=== PATIENT | female | born 1945 | race Caucasian/White ===

== ENCOUNTER 2019-06-15 10:57 | Outpatient (CLI) | payer MEDICARE, OTHER, SELFPAY ==
--- NOTE | ~2019-06-15 | XR_ITS ---
XR chest 2V DATE: 06/15/2019 11:28 INDICATION: Cough, shortness of breath, flu-like symptoms TECHNIQUE: AP and lateral views COMPARISON: 09/29/2017 two-view chest FINDINGS: Bilateral hyperinflation, consistent with COPD. No pulmonary infiltrate or consolidation, pleural effusion or pulmonary vascular congestion or pneumo thorax is detected. Cardiomegaly. Aortic calcification. No hilar or mediastinal enlargement. Diffuse osteopenia. There is levoscoliosis of the thoracic spine. There is chronic stable anterior wedge compression frac ture deformity of multiple mid thoracic vertebral bodies, unchanged since 09/29/2017. IMPRESSION: COPD No active cardiopulmonary disease Reviewed, dictated and finalized at location B. [facility]
[2019-06-15 11:13] LABS: Basophils Absolute Auto 0.06 K/mm3 (0.00-0.10); Basophils Percent Auto 0.8 % (0.0-1.0); Eosinophils Absolute Auto 0.08 K/mm3 (0.02-0.50); Hematocrit 40.3 % (35.0-42.0); Immature Granulocyte Absolute 0.05 K/mm3 (0.00-0.00); Immature Granulocyte Percent A 0.7 % (0.0-0.0); Lymphocytes Percent Auto 10.5 % (18.0-42.0); Mean Corpuscular HGB Conc 32.3 g/dL (32.0-36.0); Mean Corpuscular Hemoglobin 30.3 pg (27.0-31.0); Mean Corpuscular Volume 93.9 fL (78.0-102.0); Mean Platelet Volume 8.2 fl (9.2-11.8); Monocytes Absolute Auto 0.49 K/mm3 (0.10-0.90); Monocytes Percent Auto 6.4 % (2.0-11.0); Neutrophils Absolute Auto 6.1 K/mm3 (1.7-7.2); Neutrophils Percent Auto 80.6 % (50.0-70.0); Platelet Count Result 351 K/mm3 (150-420); Red Blood Count 4.29 M/mm3 (4.20-5.40); Red Cell Distribution Width 11.9 % (11.6-14.4); White Blood Count 7.6 K/mm3 (4.8-10.8)
[2019-06-15 11:34] LABS: Alanine Aminotransferase 16 U/L (14-59); Albumin Level 3.4 g/dL (3.4-5.0); Alkaline Phosphatase 64 U/L (46-116); Anion Gap 12.4 mmol/L (7-16); Aspartate Amino Transferase 14 U/L (15-37); Bilirubin,Total 0.3 mg/dL (0.00-1.00); Blood Urea Nitrogen 13 mg/dL (7-18); Calcium 8.8 mg/dL (8.5-10.1); Carbon Dioxide 28 mmol/L (21-32); Chloride 100 mmol/L (98-108); Estimated Glomerular Filt Rate > 60; Glucose 98 mg/dL (70-99); Osmolality Calculated 282 mOsm/kg (285-295); Potassium 4.4 mmol/L (3.5-5.1); Sodium 136 mmol/L (136-145); Total Protein 7.6 g/dL (6.4-8.2)
== END 2019-06-15 10:58 | disposition home or self-care (01) ==
PROVIDERS: PCP Internal Medicine; Visit Provider Internal Medicine
DX: R05 Cough (principal); R10.9 Unspecified abdominal pain
CPT/HCPCS: 36415; 71046; 80053; 85025

== ENCOUNTER 2022-06-29 13:08 | Emergency (ER) | payer MEDICARE, OTHER, SELFPAY ==
[2022-06-29] VITALS (15 sets, daily range): BP systolic 95–144; BP diastolic 61–79; PULSE 88–99; RESP 18–26; TEMP 36.2–37.1; O2SAT 99–100
--- NOTE | ~2022-06-29 | XR_ITS ---
EXAMINATION: XR chest 1V portable 06/29/2022 13:49 INDICATION: Cough. Covid positive. PROCEDURE: AP portable chest COMPARISON: 06/15/2019 FINDINGS: The lungs are clear. The lungs are hyperinflated which is consistent with, but not diagnost ic of chronic obstructive pulmonary disease. The cardiomediastinal silhouette is within normal limit s. There are no pleural effusions. There is no pneumothorax suspected. IMPRESSION: 1: NO ACUTE CARDIOPULMONARY DISEASE. Reviewed, dictated and finalized at location L. [facility]
--- NOTE | 2022-06-29 13:38 | ED.SOB ---
HPI - SOB/Dyspnea General Chief Complaint: Shortness of Breath/Dyspnea Stated Complaint: COVID + Time Seen by Provider: 06/29/22 13:37 Source: patient and RN notes reviewed Mode of arrival: ambulatory Limitations: no limitations History of Present Illness HPI Narrative: patient states that she tested positive with an [id number] outpatient test today. She has been having cough and some increased shortness of breath. She does remain on 4 L O2 at home. She says that she is not having any worsening shortness of breath Than normal. MD elicited complaint: shortness of breath and cough Pertinent past history: COPD Onset (ago): hour(s) (4) Severity: mild Exacerbating factors: exertion Relieving factors: rest Known history of: COPD Associated symptoms: cough and sputum production ( today whitish-yellow) Treatment prior to arrival: oxygen Related Data Home oxygen amount: 4 liters Home Medications Medication Instructions Recorded Confirmed fluoxetine 40 mg capsule 40 mg PO DAILY 06/29/22 06/29/22 trazodone 50 mg tablet 50 mg PO HS 06/29/22 06/29/22 Allergies Allergy/AdvReac Type Severity Reaction Status Date / Time No Known Allergies Allergy Verified 06/29/22 13:23 Review of Systems Review of Systems: All systems reviewed & are unremarkable except as noted in HPI and below Constitutional: Constitutional: Denies chills and Denies fever(s) Cardiovascular: Cardiovascular: Denies chest pain Gastrointestinal: Gastrointestinal: Denies nausea and Denies vomiting PMFSH Past Medical History Medical History (Updated 06/29/22 @ 14:46 by Alexsander Lawrence MD) COPD (chronic obstructive pulmonary disease) Depression Exam Const: General: no acute distress, alert and ill appearing acutely and chronically Nutritional Appearance: well nourished Orientation/consciousness: patient oriented x3 Limitations: no limitations Other: patient just make on arrival and then once in a room and relaxed she is breathing normally and speaking in full sentences. HENMT: Head: normal to inspection Ears: external ears normal Eyes: Conjunctivae: conjunctivae normal Pupils: Equal, round and reactive pupils present EOM: EOMs intact bilaterally Neck: Neck: normal visual inspection Resp: Effort & Inspection: normal respiratory effort and tachypneic ( Initially tachypneic but then rested and normal respirations) Auscultation: wheezes ( mild scattered) Cardio: Rate: regular rate Rhythm: regular rhythm GI: GI Palp: Yes Soft to palpation and No Tenderness to palpation present (GI) Auscultation: normal bowel sounds Back/Spine/Pelvis: Cervical Spine: cervical ROM normal Thoracic/Lumbar Spine: thoraco-lumbar ROM normal Skin: General skin exam: normal color Rashes: no rashes Neuro: General: patient oriented x3, moves all extremities, no focal motor deficits and CN's II-XI intact bilaterally Speech: normal speech Gait exam (Neuro): Normal gait present Extrem: General: normal to inspection and no clubbing, cyanosis or edema Psych: Mental Status: mental status grossly normal Affect: normal affect Attitude: cooperative Course Course Emergency Course: I discussed admission with the patient and she declined at this time. She says that she feels comfortable going home on steroids and Lageviro. She also states that she does not feel any respiratory distress at this time and she is not requiring any additional oxygen than what she is at home. She is given 10 mg of dexamethasone IV and will be put on a steroid taper home. I called and spoke with her primary care physician gave him update on her current diagnosis and my findings. He agreed with her being at home and he would follow up with her in 7-10 days after she is out of quarantine. Vital Signs Vital signs: Vital Signs Temperature 37.1 C 06/29/22 13:10 Pulse Rate 88 06/29/22 13:10 Respiratory Rate 26 H 06/29/22 13:10 Blood Pressure 144/77 H 06/29/22 13:10 Pulse O
[2022-06-29 13:56] LABS: Basophils Absolute Auto 0.02 K/mm3 (0.00-0.10); Basophils Percent Auto 0.4 % (0.0-1.0); Eosinophils Absolute Auto 0.01 K/mm3 (0.02-0.50); Eosinophils Percent Auto 0.2 % (1.0-6.0); Hematocrit 35.8 % (35.0-42.0); Hemoglobin 10.9 g/dL (11.7-13.8); Immature Granulocyte Absolute 0.02 K/mm3 (0.00-0.00); Immature Granulocyte Percent A 0.4 % (0.0-0.0); Lymphocytes Absolute Auto 0.75 K/mm3 (1.10-4.50); Mean Corpuscular HGB Conc 30.4 g/dL (32.0-36.0); Mean Corpuscular Volume 98.6 fL (78.0-102.0); Mean Platelet Volume 8.8 fl (9.2-11.8); Neutrophils Absolute Auto 3.5 K/mm3 (1.7-7.2); Platelet Count Result 260 K/mm3 (150-420); Red Blood Count 3.63 M/mm3 (4.20-5.40); Red Cell Distribution Width 11.4 % (11.6-14.4)
[2022-06-29 14:22] LABS: Alanine Aminotransferase 10 U/L (14-59); Albumin Level 3.1 g/dL (3.4-5.0); Alkaline Phosphatase 57 U/L (46-116); Anion Gap 2 mmol/L (8-16); Aspartate Amino Transferase 17 U/L (15-37); Bilirubin,Total 0.4 mg/dL (0.00-1.00); Blood Urea Nitrogen 10 mg/dL (7-18); CRP 3.5 mg/dL (0.0-0.9); Calcium 8.4 mg/dL (8.5-10.1); Carbon Dioxide 40 mmol/L (21-32); Chloride 99 mmol/L (98-108); Estimated CRCL calculation 57 ml/min; Estimated Glomerular Filt Rate > 60; Ferritin 148 ng/mL (8-252); Glucose 121 mg/dL (70-99); Magnesium 1.8 mg/dL (1.8-2.4); Osmolality Calculated 292 mOsm/kg (285-295); Potassium 3.5 mmol/L (3.5-5.1); Sodium 141 mmol/L (136-145); Total Protein 8.1 g/dL (6.4-8.2)
[2022-06-29 14:31] LABS: Lactic Acid Reflex 1.5 mmol/L (0.4-2.0)
== END 2022-06-29 15:10 | disposition home or self-care (01) ==
PROVIDERS: Emergency Provider Emergency Medicine; PCP Internal Medicine
DX: U07.1 COVID-19 (principal); J44.9 Chronic obstructive pulmonary disease, unspecified; Z99.81 Dependence on supplemental oxygen
CPT/HCPCS: 36415; 71045; 80053; 82728; 83605; 83735; 85025; 86140; 96374; 99284; J1100

== ENCOUNTER 2022-09-04 14:11 | Emergency (ER) | payer MEDICARE, OTHER, SELFPAY ==
[2022-09-04] VITALS (21 sets, daily range): BP systolic 100–150; BP diastolic 57–99; PULSE 90–110; RESP 18–28; TEMP 36.3–37.2; O2SAT 87–100
--- NOTE | ~2022-09-04 | XR_ITS ---
EXAMINATION: XR chest 1V portable DATE: 09/04/2022 15:20 INDICATION: Dyspnea TECHNIQUE: frontal view of the chest was obtained. COMPARISON: Chest radiograph dated 06/29/2022 and 06/15/2019 FINDINGS: Again seen is mild hyperexpansion of lungs with increased lucency and some architectural distortion a t the upper lung zone and associated mild atelectasis and bronchovascular crowding in the lower lung zones. No pleural effusion or pneumothorax. The cardiomediastinal silhouette is within normal limits for AP technique. Mild thoracic levocurvature with a few chronic compression fractures in the mid tho racic spine. IMPRESSION: 1. Stable appearance of upper lung predominant emphysema with bronchovascular crowding and mild atele ctasis in the lower lung zones. Reviewed, dictated and finalized at location A. IMPRESSION: 1. Stable appearance of upper lung predominant emphysema with bronchovascular c rowding and mild atelectasis in the lower lung zones.
--- NOTE | 2022-09-04 14:14 | ECG_ITS ---
Measurements Intervals [place] Rate: 100 P: 83 ID: [id number] QRS: 50 QRSD: 85 T: 77 QT: 337 QTc: 435 Interpretive Statements SINUS TACHYCARDIA ATRIAL PREMATURE COMPLEXES EARLY PRECORDIAL R/S TRANSITION BORDERLINE ECG NO PREVIOUS ECG AVAILABLE FOR COMPARISON Electronically Signed On 09-06-2022 6:48:48 CDT by Perfecto Martinez D.O.
--- NOTE | 2022-09-04 14:35 | PC.NURSE ---
lungs diminished amos, scattered wheezes noted. nail beds mylene
[2022-09-04] MEDS: IPRATROPIUM BR 0.02% INH SOLN 0.5 MG/2.5 ML VIAL 1 MG INHALATION (14:40)
[2022-09-04] MEDS: ALBUTEROL SULFATE NEB 2.5 MG/3 ML INH 10 MG INHALATION (14:40)
[2022-09-04] MEDS: SODIUM CHLORIDE 0.9% IV 1,000 ML 999 ML IV CONT (14:45)
[2022-09-04 14:49] LABS: Basophils Absolute Auto 0.03 K/mm3 (0.00-0.10); Basophils Percent Auto 0.6 % (0.0-1.0); Eosinophils Absolute Auto 0.01 K/mm3 (0.02-0.50); Eosinophils Percent Auto 0.2 % (1.0-6.0); Hematocrit 35.7 % (35.0-42.0); Hemoglobin 10.8 g/dL (11.7-13.8); Immature Granulocyte Absolute 0.02 K/mm3 (0.00-0.00); Immature Granulocyte Percent A 0.4 % (0.0-0.0); Lymphocytes Absolute Auto 0.38 K/mm3 (1.10-4.50); Lymphocytes Percent Auto 7.2 % (18.0-42.0); Mean Corpuscular HGB Conc 30.3 g/dL (32.0-36.0); Mean Corpuscular Hemoglobin 30.6 pg (27.0-31.0); Mean Corpuscular Volume 101.1 fL (78.0-102.0); Mean Platelet Volume 9.2 fl (9.2-11.8); Monocytes Absolute Auto 0.37 K/mm3 (0.10-0.90); Neutrophils Absolute Auto 4.5 K/mm3 (1.7-7.2); Neutrophils Percent Auto 84.6 % (50.0-70.0); Platelet Count Result 249 K/mm3 (150-420); Red Blood Count 3.53 M/mm3 (4.20-5.40); White Blood Count 5.3 K/mm3 (4.8-10.8)
--- NOTE | 2022-09-04 15:05 | ED.GENADULT ---
HPI - General Adult General Chief complaint: Unspecified Stated complaint: SOB History of Present Illness HPI narrative: 77yo woman history of emphysema, pulmonary fibrosis, brought by EMS to ED with dyspnea for past 2-3 days. Daughter says she is starting to get confused. No fevers, chills, chest pain, congestion. She is supposed to take nebulized bronchodilators at home but does not take them. Also supposed to be on CPAP but does not use it. Initial ABG notable for pCO2 greater than 100. Started on BiPAP, pulling Vt 450 cc x 18 bpm. Related Data Home Medications Medication Instructions Recorded Confirmed fluoxetine 40 mg capsule 40 mg PO DAILY 06/29/22 09/04/22 trazodone 50 mg tablet 50 mg PO HS 06/29/22 09/04/22 Allergies Allergy/AdvReac Type Severity Reaction Status Date / Time No Known Allergies Allergy Verified 06/29/22 13:23 Review of Systems Review of Systems: All systems reviewed & are unremarkable except as noted in HPI and below Constitutional: Constitutional: Reports as per HPI Cardiovascular: Cardiovascular: Denies chest pain Respiratory: Respiratory: Reports dyspnea [facility] Past Medical History Medical History COPD (chronic obstructive pulmonary disease) Depression Exam Const: General: in distress Other: inattentive, slightly stuporous HENMT: Head: normal to inspection Eyes: General: appearance normal, both eyes and all related structures Resp: Effort & Inspection: not able to speak in complete sentences, no cough, labored, pursed lip breathing, respiratory distress and prolonged expiratory phase Other: bilateral breath sounds very diminished, equal, clear, no wheezing Cardio: Rate: tachycardic Rhythm: regular rhythm Extrem: General: no pedal edema Course Course Emergency Course: 1809 Doing better on BiPAP with anxiolysis from Lorazepam. Vt 450 on 04/13. Rate turned up to 18. 1759 Pt accepted for transfer by Dr Dillard at [facility]. 183 Still awaiting a bed. Nurses calling for updates. Pt maintaining Vt on BiPAP. Will send for repeat ABG soon. Vital Signs Vital signs: Vital Signs Temperature 36.6 C 09/04/22 14:10 Pulse Rate 100 09/04/22 14:10 Respiratory Rate 22 H 09/04/22 14:10 Blood Pressure 150/95 H 09/04/22 14:10 Pulse Oximetry 87 L 09/04/22 14:10 Oxygen Delivery Room Air 09/04/22 14:10 Temperature 36.6 C 09/04/22 14:10 Pulse Rate 110 H 09/04/22 16:39 Respiratory Rate 28 H 09/04/22 16:39 Blood Pressure 150/95 H 09/04/22 14:10 Pulse Oximetry 94 09/04/22 16:39 Oxygen Delivery Autopap 09/04/22 16:52 Oxygen Flow Rate 2 09/04/22 14:41 Transfer Transfered to: Other ([facility]) Transportation: [facility] Medical Decision Making MDM Narrative Medical decision making narrative: acute hypercapnic respiratory failure DDx COPD exacerbation, pneumonia, pneumothorax, viral lower respiratory infection. Critically poor respirations. Chronic respirations. BiPAP started. Medical Records Medical records reviewed: Yes I reviewed the external patient's medical records. Vital Signs Vital Signs: Vital Signs Temperature 36.6 C 09/04/22 14:10 Pulse Rate 100 09/04/22 14:10 Respiratory Rate 22 H 09/04/22 14:10 Blood Pressure 150/95 H 09/04/22 14:10 Pulse Oximetry 87 L 09/04/22 14:10 Oxygen Delivery Room Air 09/04/22 14:10 Temperature 36.6 C 09/04/22 14:10 Pulse Rate 110 H 09/04/22 16:39 Respiratory Rate 28 H 09/04/22 16:39 Blood Pressure 150/95 H 09/04/22 14:10 Pulse Oximetry 94 09/04/22 16:39 Oxygen Delivery Autopap 09/04/22 16:52 Oxygen Flow Rate 2 09/04/22 14:41 Lab Data Lab results reviewed: Yes I reviewed the patient's lab results. 09/04/22 14:14 09/04/22 14:14 Labs: Lab Results 09/04/22 09/04/22 Range/Units 14:14 14:15 WBC 5.3 (4.8-10.8) K/mm3 RBC 3.
[2022-09-04 15:07] LABS: Bilirubin Urine Negative (Negative); Blood Urine 2+ (Negative); Color Urine Light Yellow (Yellow); Glucose Urine UA Negative (Negative); Ketones Urine 1+ (Negative); Leukocyte Esterase Ur Negative LEU/UL (Negative); Nitrate Urine Negative (Negative); Protein Urine Negative (Negative); Specific Grav Ur 1.015 (1.010-1.020); Urobilinogen Urine 0.2 mg/dL (0.2-1.0)
[2022-09-04 15:13] LABS: Lactic Acid Reflex 0.5 mmol/L (0.4-2.0)
[2022-09-04 15:13] LABS: Add Urine Microscopic? YES; Appearance Urine Cloudy (Clear); RBC Urine 0-2 /hpf (0-2)
[2022-09-04 15:14] LABS: Amorphous Sediment Urine Heavy; Bacteria Urine 4+ /hpf
[2022-09-04 15:14] LABS: Alanine Aminotransferase 10 U/L (14-59); Alkaline Phosphatase 52 U/L (46-116); Anion Gap 1 mmol/L (8-16); Aspartate Amino Transferase 20 U/L (15-37); Bilirubin,Total 0.3 mg/dL (0.00-1.00); Blood Urea Nitrogen 7 mg/dL (7-18); Calcium 8.9 mg/dL (8.5-10.1); Carbon Dioxide 45 mmol/L (21-32); Chloride 89 mmol/L (98-108); Estimated CRCL calculation 80 ml/min; Estimated Glomerular Filt Rate > 60; Glucose 117 mg/dL (70-99); Lactate Dehydrogenase 193 U/L (81-234); Magnesium 1.9 mg/dL (1.8-2.4); NT Pro B Type Natriuretic Pept 241 pg/mL (0-450); Osmolality Calculated 279 mOsm/kg (285-295); Potassium 4.4 mmol/L (3.5-5.1); Sodium 135 mmol/L (136-145); Total Protein 7.1 g/dL (6.4-8.2); Troponin I 30.4 ng/L (0.00-60.4)
[2022-09-04 15:32] LABS: HCO3 ABG 43.4 mmol/L (23-29); Oxygen Content ABG 17.4 %vol (16.0-22.0); Oxygen Saturation ABG 99.4 % (95-97); Oxyhemoglobin 98.5 % (94-100); PO2 ABG 322.4 mmHg (75-85); pH ABG 7.23 (7.35-7.45)
[2022-09-04 15:33] LABS: Device NASAL CANNULA; Modified Allen's Test Pass; Site Drawn RIGHT RADIAL
--- NOTE | 2022-09-04 15:55 | PC.NURSE ---
Patient daughter asked for food for her mother, patient was hungry. Pt advised she would have to wait results of pending test
--- NOTE | 2022-09-04 16:05 | PC.NURSE ---
while daughter in room, pt won't open eyes or answer questions. Moans only response when daughter not in room pt eyes open & answers questions
[2022-09-04] MEDS: LORazepam INJ (*CRX) 2 MG/ML VIAL 0.5 MG IV PUSH ×2 (17:07→17:54)
--- NOTE | 2022-09-04 19:19 | PC.NURSE ---
191- Call to [employer] [facility] to check on flight availability today. [facility] 156 on standby out of [facility] with an an eta of 18 minutes once pt is assigned a room at [facility].
[2022-09-04 19:41] LABS: Base Excess ABG 10.8 mmol/L (0-2); HCO3 ABG 39.9 mmol/L (23-29); Oxygen Content ABG 15.7 %vol (16.0-22.0); Oxygen Saturation ABG 97.5 % (95-97); Oxyhemoglobin 96.8 % (94-100); PO2 ABG 100.1 mmHg (75-85); Total Hemoglobin 11.4 g/dL (12.0-18.0); pH ABG 7.31 (7.35-7.45)
[2022-09-04 19:43] LABS: Modified Allen's Test Pass; PCO2 ABG 81.8 mmHg (35-45); Site Drawn RIGHT RADIAL
[2022-09-04 19:44] LABS: Device BIPAP; Expiratory Pressure 6 cmH2O; Inspiratory Pressure 12 cmH2O
--- NOTE | 2022-09-04 19:53 | PC.NURSE ---
Report given to VIANNEY Varela at [facility] at 192. Pt assigned to room C1 and she states that the room is currently dirty. Nichole will call back when room is clean and pt is ready for transport
--- NOTE | 2022-09-04 20:22 | PC.NURSE ---
Nichole RN called to advise that pt room is ready. [facility] notified and is en route 2021
--- NOTE | 2022-09-04 21:13 | PC.NURSE ---
2052; [facility] arrived to ED for pt transport. Report given to flight team. While transferring pt over to their stretcher, dispatch called [facility] to advise them that they will need to be grounded for the next 1.5 hours due to weather. [facility] is working on obtaining a ground unit for transfer. This RN called [facility] who is unable to transport patient with [facility]. [facility] called and will page out a BLS rig to ED for transport.
--- NOTE | 2022-09-04 21:26 | PC.NURSE ---
[id number] Marilee nunez arrived to ED to transport patient with [facility] crew
== END 2022-09-04 21:36 | disposition short-term general hospital (02) ==
PROVIDERS: Emergency Provider Emergency Medicine; PCP Internal Medicine
DX: J96.02 Acute respiratory failure with hypercapnia (principal); J43.9 Emphysema, unspecified; J84.10 Pulmonary fibrosis, unspecified
CPT/HCPCS: 36415; 36600; 71045; 80053; 81001; 82805; 83605; 83615; 83735; 83880; 84484; 85025; 93005; 94640; 96365; 96367; 96375; 96376; 99291; J0456; J0696; J1100; J2060; J7030